=== PATIENT | female | born 1950 | race Caucasian/White ===

== ENCOUNTER 2017-02-20 07:52 | Day surgery (SDC) | payer OTHER ==
[~2017-02-20] VITALS: Ht 154.9 cm; Wt 76.7 kg
[2017-02-20] MEDS ORDERED: POVIDONE IODINE 5% (ANTISEPSIS KIT) 4 APPLICATIONS EACH NARE PRN (08:30)
[2017-02-20] MEDS ORDERED: LACTATED RINGER'S 1000 ML IV PRN (08:30)
[2017-02-20] MEDS ORDERED: INSULIN HUMAN REGULAR 1,000 UNITS/10 ML VIAL SQ PRN (08:30)
[2017-02-20] MEDS ORDERED: SODIUM CHLORID 0.9% 500 ML IV PRN (08:30)
[2017-02-20] MEDS ORDERED: LORazepam 1 MG TAB SL SCH (08:30)
[2017-02-20] MEDS ORDERED: LEVOFLOXACIN 500 MG PREMIX INJ 100 ML IV ONE (08:30)
[2017-02-20] MEDS ORDERED: SODIUM CHLORID 0.9% 500 ML INJ 500 ML IV SCH (08:30)
[2017-02-20] MEDS ORDERED: METOPROLOL TARTRATE 25 MG TAB PO PRN (08:30)
[2017-02-20] MEDS ORDERED: CHLORHEXIDINE GLUCONATE 2 % 1 PACK (2 CLOTHS) TOPICAL PRN (08:30)
[2017-02-20 08:44] VITALS: BP 184/96; PULSE 50; RESP 18; TEMP 99.6; O2SAT 97
[2017-02-20] MEDS ORDERED: CITA20TA4 PO (08:50)
[2017-02-20] MEDS ORDERED: XARE20TA PO (08:50)
[2017-02-20] MEDS ORDERED: RANI150C PO (08:50)
[2017-02-20] MEDS ORDERED: CETI10 PO (08:50)
[2017-02-20] MEDS ORDERED: OMEG100010 PO (08:50)
[2017-02-20] MEDS ORDERED: ACET1CAP18 PO (08:50)
[2017-02-20] MEDS ORDERED: ATEN25TA PO (08:50)
[2017-02-20] MEDS ORDERED: BIOTCAP PO (08:50)
[2017-02-20] MEDS ORDERED: VITA10006 PO (08:50)
[2017-02-20] MEDS ORDERED: METF500T4 PO (08:50)
[2017-02-20] MEDS ORDERED: VITA100018 PO (08:50)
[2017-02-20] MEDS ORDERED: RAMI10CA PO (08:50)
[2017-02-20 08:59] LABS: AUTOMATED NEUTROPHIL # 7.5 TH/MM3 (1.8-7.7); BASOPHIL # 0.2 TH/MM3 (0-0.2); BASOPHIL % 1.7 % (0.0-2.0); EOSINOPHIL # 0.5 TH/MM3 (0-0.4); EOSINOPHIL % 3.8 % (0.0-4.0); HEMATOCRIT 40.5 % (35.0-46.0); HEMO FLAGS DIFF FINAL; LYMPH % 32.9 % (9.0-44.0); LYMPHOCYTE # 4.4 TH/MM3 (1.0-4.8); MEAN CELL VOLUME 91.7 FL (80.0-100.0); MEAN CORPUSCULAR HGB CONC 32.7 % (32.0-36.0); MONO % 5.8 % (0.0-8.0); NEUT % 55.8 % (16.0-70.0); PLATELET COUNT 255 TH/MM3 (150-450); RED BLOOD COUNT 4.42 MIL/MM3 (4.00-5.30); RED CELL DISTRIBUTION WIDTH 15.4 % (11.6-17.2); WHITE BLOOD COUNT 13.5 TH/MM3 (4.0-11.0)
[2017-02-20 09:09] LABS: APTT (PATIENT) 27.1 SEC (24.3-30.1); INTERNATIONAL NORMALIZED RATIO 0.9 RATIO; PROTHROMBIN TIME - PATIENT 10.2 SEC (9.8-11.6)
[2017-02-20 09:33] LABS: BICARBONATE 23.7 MEQ/L (21.0-32.0); POTASSIUM 3.8 MEQ/L (3.5-5.1)
[2017-02-20] MEDS ORDERED: HEPARIN-D5W INJ 250 ML ONE (10:05)
[2017-02-20] MEDS ORDERED: fentaNYL CITRATE 250 MCG/5 ML AMP ONE (10:06)
[2017-02-20] MEDS ORDERED: PROTAMINE SULFATE 50 MG/5 ML VIAL ONE (10:06)
[2017-02-20] MEDS ORDERED: HEPARIN SODIUM - IV 10,000 UNITS/10 ML VIAL ONE (10:06)
[2017-02-20] MEDS ORDERED: ISOPROTERENOL HCL 1 MG/5 ML AMP ONE (10:06)
[2017-02-20] MEDS ORDERED: HEPARIN-NS/PF INJ 500 ML ONE (10:17)
[2017-02-20] MEDS ORDERED: SODIUM CHLORID 0.9% 500 ML INJ 500 ML IV ONE (12:30)
[2017-02-20] MEDS ORDERED: ePHEDrine/NS 50 MG/5 ML SYR IV ONE (12:30)
[2017-02-20] MEDS ORDERED: ONDANSETRON HCL 4 MG/2 ML VIAL IV PUSH ONE (12:30)
[2017-02-20] MEDS ORDERED: METOCLOPRAMIDE HCL 10 MG/2 ML VIAL IV PRN (12:30)
[2017-02-20] MEDS ORDERED: LIDOCAINE HCL 1% 50 ML VIAL INFIL PRN (12:30)
[2017-02-20] MEDS ORDERED: PROPOFOL 200 MG/20 ML AMP IV PUSH ONE (12:30)
[2017-02-20] MEDS ORDERED: oxyCODONE/ACETAMINOPHEN 5 MG/325 MG TAB PO PRN ×2 (12:30)
[2017-02-20] MEDS ORDERED: BACITRACIN OINT 0.9 GM PKT TOP ONE (12:30)
[2017-02-20] MEDS ORDERED: ATROPINE SULFATE 1 MG/ML VIAL IV PRN (12:30)
[2017-02-20] MEDS ORDERED: ONDANSETRON HCL 4 MG/2 ML VIAL IV PRN (12:30)
[2017-02-20] MEDS ORDERED: LORazepam 2 MG/ML VIAL IV PRN (12:30)
[2017-02-20] MEDS ORDERED: SODIUM CHLOR 0.9% 250 ML INJ 250 ML IV PRN (12:30)
[2017-02-20] MEDS ORDERED: PHENYLEPH/NS 1000 MCG/10 ML SYR IV PUSH ONE (12:30)
[2017-02-20] MEDS ORDERED: IOHEXOL 350 MG/ML 100 ML BTL (for EPS) OTHER ONE (12:30)
--- NOTE | 2017-02-20 12:57 | CATHPROC ---
[facility] Report Study Information Study Number Scheduled Start Study Start [id number] 02/20/2017 Feb 20 2017 9:53AM Referring Institution Admit Source Facility Department 1 Other [facility] [facility] [employer] Physician and Clinical Staff Initial Jai Beauchamp Lan Manager Kemal Kerns,RT(R) Other Anesthesia, CURATOR OF PHOTOGRAPHY AND PRINTS Recorder Jackie Carmona,RN Recorder Kerry Preciado,HEIDI Scrub Capri Lopes,JEWISH THOUGHT PROFESSOR TECH2 Procedures Performed Procedure Location (Site) Vessel Name Ablation Procedure CRYO Ablation LIPV LIPV CRYO Ablation LSPV LSPV CRYO Ablation RIPV RIPV CRYO Ablation RSPV RSPV ICE CATHETER INSERT RA Atruim Equipment Time Cotton Broker Description Size Mfg Part Number Used/Scraped COPILOT VALVE, BLEEDBACK [id number] 10:22 [employer] Used CONTROL *[id number] TRANSDUCER, TRUWAVE 10:22 Room n House * [id number] Used W/BookingNestCOCK NEEDLE, TRANSSEPTAL NRG 98 10:22 [facility] [id number] Used C1 COVER, TRANSDUCER CABLE 10:22 [employer] 612-113 Used ACUNAV 10:22 CONMED LEADWIRE, DEFIBRILLATION PAD 2001M-[id number] Used SHEATH SET, FR12 CHECK-LULU RCF-[id number]-J 10:22 COOK/PACER FR12 Used 13CM *[id number] 10:22 CORDIS/PACER SHEATH, FR10 MAICOL 11CM FR 10 [id number] Used [id number] 10:22 [employer] INDUSTRIES PACK, CCL CUSTOM * Used *[id number] 10:22 [employer] PACER PITTMAN, LIMB * 2530 Used [id number]-[id number]- 10:22 [employer]ified MEDICAL SHEATH, FR4.5 PRELUDE 11CM FR 4.5 Used [id number] 10:22 [employer] MEDICAL WIRE, 3MMJ .035 180CM 180CM Used *[id number] 10:22 NAMIC MANIFOLD, 4 PORT * Used *[id number] 10:22 NAMIC TUBING, HIGH PRESSURE 20" 20" Used *[id number] 10:22 NAMIC TUBING, HIGH PRESSURE 48" 48" Used *[id number] 10:22 NAMIC TUBING, HIGH PRESSURE 48" 48" Used *[id number] TUBING, PRESSURE MONITORING [id number] 10:22 NAMIC PACER 72" Used 72" *[id number] 10:48 NYCOMED OMNIPAQUE, 350 MG, 150ML 150ML [id number] Used [id number] 10:22 MARSH MEDICAL BLANKET,WARM AIR CCL * Used *[id number] 771379 10:22 [facility] MEDICAL CATHETER, JSN, QUAD FR 5 Used *[id number] 036215 10:22 [facility] MEDICAL CATHETER, JSN, QUAD FR 5 Used *[id number] 10:22 [facility] MEDICAL ELECTRODE KIT, RAHEEM X SURFACE * [id number] Used 10:22 [facility] MEDICAL SHEATH, EPS, FR6 FAST CATH FR 6 [id number] Used 10:22 [facility] MEDICAL SHEATH, EPS, FR7 FAST CATH FR 7 [id number] Used 10:22 [facility] MEDICAL SHEATH, EPS, FR8 FAST CATH FR 8 [id number] Used CATHETER, ACUNAV FR10 ICE [id number] 11:03 RONA FR 10 Used (RONA) *[id number] [facility] PAD, ELECTROSURGICAL 10:22 * [id number] Used SURGICAL GROUNDING (BLUE) BALLOON, ARCTIC FRONT [id number] 11:16 VITATRON MEDTRONIC Used ADVANCE 28MM *[id number] CATHETER, ACHEIVE MAPPING 11:18 VITATRON MEDTRONIC * [id number] Used 20MM SHEATH, FR12 FLEXCATH 11:16 VITATRON MEDTRONIC FR 12 [id number] Used STEERABLE History: Allergies Allergy Reaction Demerol Lotensin History: Risk Factors Hypertension Dyslipidemia Yes Yes Diabetes Diabetes Therapy Labs Hgb (g/dl) Hct (%) RBC (MIL/MM3) WBC (l/cumm) Platelets (thousands) 12.00-18.00 37.00-55.00 4.80-6.20 4.80-10.80 140.00-450.00 13.0 40 4.4 13.5 255 Glucose (mg/dl) BUN (mg/dl) Creatinine (mg/dl) BUN:Creatinine (1:x) 60.00-110.00 8.00-20.00 0.10-9.00 10.00-20.00 108 17 1.0 17 Na (meq/l) K (meq/l) 138.00-146.00 3.80-5.10 142 3.8 INR (PTT:PT) 0.50-2.00 0.9 CPK-MB (ng/ML) 0.00-7.00 Not Drawn Medication Medication Total Dose (Bolus/Oral) Medication Total Dosage/Unit 1% XYLOCAINE 40 mL HEPARIN 93328 units PROTAMINE 40 mg Medications (Bolus/Oral) Medication Time Given Dosage/Unit Administered By Reason 1% XYLOCAINE 02/20/2017 10:55:30 AM 20 mL Jai Bethea 20 mL 1% XYLOCAINE given in lab by Jai Bethea in Left Groin via Subcutaneous. Ordered by Vlad Bethea 1% XYLOCAINE 02/20/2017 10:58:40 AM 20 mL Jai Bethea 20 mL 1% XYLOCAINE given in lab by Jai Bethea in Right Groin via Subcutaneous. Ordered by Niki Bethea. HEPARIN 02/20/2017 11:06:38 AM 8000 units Anesthesia, CURATOR OF PHOTOGRAPHY AND PRINTS 8000 units HEPARIN given in lab by Anesthesia, CURATOR OF PHOTOGRAPHY AND PRINTS via Peripheral IV. Ordered by Jai Bethea. HEPARIN 02/20/2017 11:19:33 AM 3000 units Anesthesia, CURATOR OF PHOTOGRAPHY AND PRINTS 3000 units HEPARIN given in lab by Anesthesia, CURATOR OF PHOTOGRAPHY AND PRINTS via Peripheral IV. Ordered by Jai Bethea. HEPARIN 02/20/2017 11:33:15 AM 3000 units Anesthesia, CURATOR OF PHOTOGRAPHY AND PRINTS 3000 units HEPARIN given in lab by Anesthesia, CURATOR OF PHOTOGRAPHY AND PRINTS via Peripheral IV. Ordered by Jai Bethea. PROTAMINE 02/20/2017 12:25:26 PM 40 mg Anesthesia, CURATOR OF PHOTOGRAPHY AND PRINTS As per physicians ramiro bal order 40 mg PROTAMINE given in lab by Anesthesia, CURATOR OF PHOTOGRAPHY AND PRINTS via Peripheral IV. Ordered by Jai Bethea. Reason: As per physicians verbal order. Medication (Drip) Medication Time Given Dosage/Unit Concentration/Unit Diluent (ml) Solution HEPARIN DRIP 02/20/2017 11:19:42 AM 1000 units/hr 15026 units 250 D5W 1000 units/hr HEPARIN DRIP given in lab by Anesthesia, CURATOR OF PHOTOGRAPHY AND PRINTS via Peripheral IV. Pump/Drip Flow = 10 ml /hr using D5[place] [address] units in 250 ml. Ordered by Jai Bethea. ISUPREL 02/20/2017 12:15:54 PM 20 mcg/min 1 mg 250 NaCl .9 20 mcg/min ISUPREL given in lab by Anesthesia, CURATOR OF PHOTOGRAPHY AND PRINTS via Peripheral IV. Pump/Drip Flow = 300 ml/hr usi ng NaCl .9 with a concentration of 1 mg in 250 ml. Ordered by Jai Bethea. Reason: As per physicians verbal order. Initial Case Assessment Cardiovascular HR Rhythm NIBP Chest Pain 55 regular 189/80 0 Edema Present Skin color Skin None Normal Warm Dry Neurological State Oriented to time-place- Alert Moves all extremities person Respiration - General Respiration Rate SpO2 (%) (B/min) 15 100 Final Case Assessment Cardiovascular HR Rhythm NIBP Chest Pain 69 sr 135/65 0 Edema Present Skin color Skin None Normal Warm Dry Circulatory - Right Pulses Dorsalis Pedis 2 Scale (0,1,2,3,4,d) Circulatory - Left Pulses Dorsalis Pedis 2 Scale (0,1,2,3,4,d) Circulatory - Lower Extremities Color Lower Right Color Lower Left Normal Normal Neurological State Lethargic Moves all extremities Respiration - General Respiration Rate SpO2 (%) O2 (lpm) (B/min) 16 95 4 Chronological Log Time Study Chronological Log IV Antibiotic Given in the Antecubital (left). 500mg Levaquin given IVx1 in DOCU holding for fo nidia catheter insertion 9:10:00 per MD 10:20:15 Patient arrived via Bed. 10:20:19 Patient Name, D.O.B, / Armband Verified By R.N. 10:20:23 Consent signed by the physician and the patient and verified by the [employer] staff. 10:20:41 Anesthesia at bedside. Assumes care of patient. Oskar Whipple CRNA 10:21:26 Pre-op and post- op instructions given; patient acknowledges understanding of instructions. 10:22:32 Verbal Stimulation=2 Physical Stimulation=2 Airway=2 Respiration=2 TOTAL=8. (0=absent, 1=li mited, 2=present) 10:22:49 Patient has been NPO for More than 6Hrs. 10:22:51 Skin Breakdown-None per pt 10:22:58 Patient Warmer Placed on the Table. 10:22:59 Disposable Defibrillator Pads Placed On Patient. 10:23:00 Margo Prominences Protected 10:23:17 A # 20 IV was noted in the Forearm (right). Grade = 0 0.9 NS infusing at KVO per CURATOR OF PHOTOGRAPHY AND PRINTS in la b 10:23:42 A # 20 IV was noted in the Antecubital (left). Grade = 0 0.9 NS infusing at KVO per CURATOR OF PHOTOGRAPHY AND PRINTS in lab 10:24:17 History and physical on the chart or being dictated. 10:24:20 Table restraints applied according to hospital policy 10:25:27 Lopez Catheter inserted in DOCU to dependent drainage. Clear, yellow urine noted. Assessment: Initial Case, HR=55 BPM, Rhythm=regular, OKYT=571/80 mmhg, Chest Pain=0, Edema=None , Color=Normal, Skin = Warm, Dry 10:34:36 Neurological: State=Alert, Ox3, MASTERS Respiration: Resp=15 B/min, UdN1=860 % 10:40:40 Bilateral groins prepped with 2% chlorhexidine, and with a 3 min. waiting time. 10:44:00 MD arrived. 10:44:33 Reference ECG taken Time Out. Correct patient, correct procedure,correct physician, ,power injector loaded or not l oaded with contrast with 10:51:26 surgical team present. Time Out Concurred by MD, individual staff and CURATOR OF PHOTOGRAPHY AND PRINTS in procedure Time Out #2 - Consents verified, patient in correct position, all results are labled and displa yed, safety precautions 10:51:49 taken, antibiotics administered. Time out concurred by MD, individual staff and CURATOR OF PHOTOGRAPHY AND PRINTS in procedu re 10:51:59 Case Start 10:52:56 CHRIS in progress 10:54:30 CHRIS complete 10:55:30 20 mL 1% XYLOCAINE given in lab by Jai Bethea in Left Groin via Subcutaneous. Ordered by Jai Bethea. 10:56:09 Vascular access was obtained in the Fem Vein (left). 10:56:24 Vascular access was obtained in the Fem Vein (left). 10:56:25 Vascular access was obtained in the Fem Vein (left). 10:56:26 Vascular access was obtained in the Fem Art (left). 10:56:52 A SHEATH, EPS, FR6 FAST CATH FR 6 was advanced into the Fem Vein (left) using the Modified Seldinger technique. 10:57:14 A SHEATH, EPS, FR7 FAST CATH FR 7 was advanced into the Fem Vein (left) using the Modified Seldinger technique. 10:57:18 A SHEATH, FR10 MAICOL 11CM FR 10 was advanced into the Fem Vein (left) using the Modified S eldinger technique. 10:57:24 A SHEATH, FR4.5 PRELUDE 11CM FR 4.5 was advanced into the Fem Art (left) using the Modified Seldinger technique. 10:58:40 20 mL 1% XYLOCAINE given in lab by Jai Bethea in Right Groin via Subcutaneous. Ordered b y Jai Bethea. 10:59:07 Vascular access was obtained in the Fem Vein (right). 10:59:10 Vascular access was obtained in the Fem Vein (right). 10:59:20 A SHEATH, EPS, FR8 FAST CATH FR 8 was advanced into the Fem Vein (right) using the Modified Seldinger technique. A CATHETER, JSN, QUAD FR 5 was advanced vis Fem Vein (left) and placed in the HIS. Placement wa s visually 11:00:43 confirmed under fluoroscopy. A CATHETER, JSN, QUAD FR 5 was advanced vis Fem Vein (left) and placed in the CS. Placement was visually 11:00:58 confirmed under fluoroscopy. 11:02:11 CATHETER, ACUNAV FR10 ICE ([place]) FR 10 Was Postioned. A SHEATH, FR12 FLEXCATH STEERABLE FR 12 was exchanged in the Fem Art (right). This was necessar y in order for 11:03:32 catheter support. 11:04:35 Torrie needle inserted 11:06:38 8000 units HEPARIN given in lab by Anesthesia, CURATOR OF PHOTOGRAPHY AND PRINTS via Peripheral IV. Ordered by Vlad Bethea. 11:07:16 A eps was advanced to the right atrium and passed through the septal wall to the left atriu m. 11:07:46 Torrie needle removed 11:11:20 Activated Clotting Time Drawn A CATHETER, ACHEIVE MAPPING 20MM * was advanced vis Fem Vein (left) and placed in the LA. Place ment was 11:17:29 visually confirmed under fluoroscopy. 11:18:05 Heparin Flush started at 2ml/hr through flex sheath 11:18:59 ACT (Normal Range 90-180) = 286 11:19:33 3000 units HEPARIN given in lab by Anesthesia, CURATOR OF PHOTOGRAPHY AND PRINTS via Peripheral IV. Ordered by Vlad Bethea. 1000 units/hr HEPARIN DRIP given in lab by Anesthesia, CURATOR OF PHOTOGRAPHY AND PRINTS via Peripheral IV. Pump/Drip Flow = 10 ml/hr using 11:19:42 [place] [address] units in 250 ml. Ordered by Jai Bethea. 11:23:38 Cryo Ablation of the LSPV with a BALLOON, ARCTIC FRONT ADVANCE 28MM. First Freeze 11:24:21 Activated Clotting Time Drawn 11:33:02 ACT (Normal Range 90-180) = 294 11:33:15 3000 units HEPARIN given in lab by Anesthesia, CURATOR OF PHOTOGRAPHY AND PRINTS via Peripheral IV. Ordered by Vlad Bethea. 11:33:37 Cryo Ablation of the LSPV with a BALLOON, ARCTIC FRONT ADVANCE 28MM. Second Freeze 11:38:39 Cryo Ablation of the LIPV with a BALLOON, ARCTIC FRONT ADVANCE 28MM. First Freeze 11:41:52 Activated Clotting Time Drawn 11:41:58 Cryo Ablation of the LIPV with a BALLOON, ARCTIC FRONT ADVANCE 28MM. Second Freeze 11:45:38 MM in. JA out. 11:49:08 ACT (Normal Range 90-180) = 351 11:52:55 Cryo Ablation of the RIPV with a BALLOON, ARCTIC FRONT ADVANCE 28MM. 1st freeze. 11:57:20 Cryo Ablation of the RIPV with a BALLOON, ARCTIC FRONT ADVANCE 28MM. 2nd freeze. 12:01:51 Cryo Ablation of the RSPV with a BALLOON, ARCTIC FRONT ADVANCE 28MM. 1st freeze. 12:06:18 Cryo Ablation of the RSPV with a BALLOON, ARCTIC FRONT ADVANCE 28MM. 2nd freeze. 20 mcg/min ISUPREL given in lab by Anesthesia, CURATOR OF PHOTOGRAPHY AND PRINTS via Peripheral IV. Pump/Drip Flow = 300 ml/ hr using NaCl .9 12:15:54 with a concentration of 1 mg in 250 ml. Ordered by Jai Bethea. Reason: As per physicians ramiro bal order. 12:17:00 Isuprel off 12:20:01 MM out. JA in. 12:21:08 Catheters removed without difficulty. A SHEATH SET, FR12 CHECK-LULU 13CM FR12 was exchanged in the Fem Vein (right). This was necessar y in order to ::26 achieve vascular hemostasis. 12:23:39 Ablation procedure performed: AFIB. 12::43 EP Procedure was performed. 12:24:03 PACU called. Spoke to [place]. 12:24:44 Bedside Report will be given. 12:25:00 Heparin off. 40 mg PROTAMINE given in lab by Anesthesia, CURATOR OF PHOTOGRAPHY AND PRINTS via Peripheral IV. Ordered by Jai Bethea. Reason: As per ::26 physicians verbal order. 12:25:53 Cine recording checked. 12:28:59 Activated Clotting Time Drawn 12:31:57 ACT (Normal Range 90-180) = 122 12:35:10 Sheath removed; pressure applied to access site. JA left arterial sheath. DB right venous sheath. 12:35:53 Case End Assessment: Final Case, HR=69 BPM, Rhythm=sr, WDAW=353/65 mmhg, Chest Pain=0, Edema=None, [place] r=Normal, Skin = Warm, Dry Right Pulses: Skyler Ped=2 Left Pulses: Skyler Ped=2 12:37:53 Lower Right Extremities: Color=Normal Lower Left Extremities: Color=Normal Neurological: State=Lethargic, MASTERS Respiration: Resp=16 B/min, SpO2=95 %, O2=4 lpm 12:40:22 JA pulled left fem venous sheaths. 12:54:51 Both femoral sites wnl. No ooz, no hematomas. 12:55:18 Sterile dressing applied to site 12:55:51 No case complications noted. 12:56:50 Defibrillator and ground pads removed. Skin intact. 12:59:34 Patient moved to [facility] End Study - Contrast Media Used In Study Contrast Total Opened (mL) Total Used (mL) Total Wasted (mL) Omnipaque 150 75 75 End Study - Maximum Contrast Load Max Contrast Load (mL) 368.4 End Study - Radiation Exposure Fluoro Time (minutes) 10.6 End Study - Sheaths Sheaths Pulled By Sheath Hold Time (min) Kemal Kerns 20 End Study - Patient Disposition Complications Transferred To Interventional Outcome No Telemetry Bed successful
[2017-02-20] MEDS: RAMIPRIL 5 MG CAP PO SCH (13:00)
[2017-02-20] MEDS ORDERED: *ONDANSETRON 4 MG VIAL PERIprocedural Use ONLY ONE (13:09)
[2017-02-20] MEDS ORDERED: *PROMETHAZINE 25 MG/ML VIAL PERIprocedural use ONLY ONE (13:23)
[2017-02-20] MEDS ORDERED: DO NOT ADM ANY ANTICOAGULANT DRUGS PRN (13:45)
[2017-02-20] MEDS ORDERED: ACETAMINOPHEN 1000 MG/100 ML VIAL IV ONE ×2 (14:38→14:45)
[2017-02-20] MEDS: RIVAROXABAN 20 MG TAB PO SCH (18:00)
[2017-02-20 20:00] VITALS: BP 130/70; PULSE 76; RESP 18; TEMP 98; O2SAT 97
[2017-02-20] MEDS: FAMOTIDINE 20 MG TAB PO SCH (20:23)
[2017-02-20] MEDS: metFORMIN HCL 500 MG TAB PO SCH (20:23)
[2017-02-21] VITALS (12 sets, daily range): BP systolic 112–155; BP diastolic 54–80; PULSE 59–79; RESP 17–20; TEMP 97.9–98.4; O2SAT 94–98
[2017-02-21 06:35] LABS: APTT (PATIENT) 34.9 SEC (24.3-30.1); INTERNATIONAL NORMALIZED RATIO 1.3 RATIO; PROTHROMBIN TIME - PATIENT 14.7 SEC (9.8-11.6)
[2017-02-21] MEDS: metFORMIN HCL 500 MG TAB PO SCH (08:27)
[2017-02-21] MEDS: FAMOTIDINE 20 MG TAB PO SCH (08:27)
[2017-02-21] MEDS: RIVAROXABAN 20 MG TAB PO SCH (08:28)
[2017-02-21] MEDS: RAMIPRIL 5 MG CAP PO SCH (08:29)
[2017-02-21] MEDS ORDERED: CETIRIZINE HCL 10 MG TAB PO SCH (09:00)
[2017-02-21] MEDS ORDERED: ATENOLOL 25 MG TAB PO SCH (09:00)
[2017-02-21] MEDS ORDERED: VITAMIN E 400 UNIT CAP PO SCH (09:00)
[2017-02-21] MEDS ORDERED: NON-FORMULARY DRUG (Omega-3 Fatty Acids (Omega 3 1000 mg) 1,000 MG) PO SCH (09:00)
[2017-02-21] MEDS ORDERED: CHOLECALCIFEROL (VIT D3) 1000 UNIT TAB PO SCH (09:00)
[2017-02-21] MEDS ORDERED: NON-FORMULARY DRUG (Biotin 5 MG) PO SCH (09:00)
[2017-02-21] MEDS ORDERED: CITALOPRAM HYDROBROMIDE 20 MG TAB PO SCH (09:00)
--- NOTE | 2017-02-21 14:24 | HHI.PR ---
Subjective Remarks Feeling better Objective Vital Signs Date Time Temp Pulse Resp B/P Pulse Ox O2 Delivery O2 Flow Rate FiO2 02/21/17 11:03 97.9 59 17 112/54 95 02/21/17 10:23 61 02/21/17 09:24 64 02/21/17 08:00 72 02/21/17 07:45 98.0 78 19 155/80 94 02/21/17 07:00 72 02/21/17 04:00 98.4 73 20 130/79 98 02/21/17 00:00 98.2 79 20 136/78 98 02/20/17 20:00 98.0 76 18 130/70 97 02/20/17 18:45 98.4 79 15 109/55 96 Room Air 02/20/17 18:15 83 15 122/56 96 Room Air 02/20/17 17:45 80 15 118/60 96 Room Air 02/20/17 17:15 98.9 68 15 110/58 96 Room Air 02/20/17 16:45 67 15 105/60 96 Room Air 02/20/17 16:15 66 17 97/52 96 Room Air 02/20/17 15:45 66 17 99/56 96 Room Air 02/20/17 15:15 67 17 97/52 96 Room Air 02/20/17 15:00 67 17 100/55 99 Room Air 02/20/17 14:45 67 17 107/56 99 Room Air 02/20/17 14:30 67 16 103/58 98 Room Air I/O 02/20/17 02/20/17 02/20/17 02/21/17 02/21/17 02/21/17 06:59 14:59 22:59 06:59 14:59 22:59 Intake Total 1200 ml 720 ml 420 ml Output Total 560 ml 250 ml 550 ml Balance 640 ml 470 ml -130 ml Intake Oral 420 ml 420 ml IV Total 300 ml Other 1200 ml Output Urine Total 550 ml 250 ml 550 ml Estimated Blood Loss 10 ml Result Diagram: 02/20/1761902/20/17619 Imaging Alert, fully oriented Lungs:Ventilated Heart: S1, S2 regular Abdomen: soft, no mass Ext: no edema Current Medications Medications (Trade) Dose Ordered Sig/Dinora Route Start Time Stop Time Status Last Admin Lactated Ringer's 1,000 ml @ 30 mls/hr Q24H PRN IV 02/20/17 08:30 02/23/17 08:29 Sodium Chloride 500 ml @ 30 mls/hr [id number] PRN IV 02/20/17 08:30 02/23/17 08:29 (NS 500 ml Inj) 500 ml @ 30 mls/hr [id number] IV 02/20/17 08:30 (Percocet 5-325 Mg) 1 tab Q4H PRN PO 02/20/17 12:30 (Percocet 5-325 Mg) 2 tab Q4H PRN PO 02/20/17 12:30 02/21/17 01:45 (Atropine Inj) 0.5 mg UNSCH PRN IV 02/20/17 12:30 (Reglan Inj) 10 mg Q4H PRN IV 02/20/17 12:30 (Zofran Inj) 4 mg Q4H PRN IV 02/20/17 12:30 (Tenormin) 25 mg DAILY PO 02/21/17 09:00 02/21/17 08:28 (ZyrTEC) 10 mg DAILY PO 02/21/17 09:00 02/21/17 08:28 (Vitamin D3) 1,000 units DAILY PO 02/21/17 09:00 02/21/17 08:27 (CeleXA) 20 mg DAILY PO 02/21/17 09:00 02/21/17 08:26 (Xarelto) 20 mg DAILY PO 02/20/17 18:00 02/21/17 08:28 (Glucophage) 250 mg BID PO 02/20/17 21:00 02/21/17 08:27 (Altace) 10 mg DAILY PO 02/20/17 13:00 02/21/17 08:29 (Pepcid) 20 mg BID PO 02/20/17 21:00 02/21/17 08:27 (Vitamin E) 400 units DAILY PO 02/21/17 09:00 02/21/17 08:27 Assessment and Plan Problem List: (1) Atrial fibrillation Status: Acute Plan: SP ablation . Doing well No tachy. No afib Will be DH Follow up as previously scheduled (2) Palpitations Status: Acute Plan: No new episode since ablation Jai Bethea MD February 21, 2017 14:24
--- NOTE | 2017-02-21 14:31 | PD.CARD ---
Atrial Fibrillation Cryo Study PROCEDURE DATE: February 20, 2017 PROCEDURE PERFORMED Electrophysiology study, CS cannulation, 3-D mapping, transeptal approach, right and left heart catheterization, cryoablation, pulmonary vein isolation, posterior ablation, anterior ablation, repeat electrophysiology study on Isuprel infusion, intracardiac echo. Very complex case. INDICATIONS FOR PROCEDURE Ms. Rousseau is a 66-year-old female with atrial fibrillation, on multiple medications, on anticoagulation, symptomatic, referred for electrophysiology study and ablation. The risks, the nature and the benefit of the procedure are clearly stated to her. The risks include pneumothorax, cardiac perforation, stroke, need for open heart surgery and even . The patient understood and agreed to proceed. PROCEDURE As written informed consent was obtained prior to esophageal echo, the patient was kept on the table where she was prepped and draped in the usual sterile fashion. Conscious sedation was initiated and throughout the procedure by the anesthesiologist. Once sedation was verified, the right and left inguinal area was anesthetized with 2% Xylocaine. Using modified Seldinger technique, the left femoral vein was cannulated on three occasions and three guidewires were advanced over the wire, one 6, one 7, and one 10-[place] Hemaquet were advanced. Then the left femoral artery was done on one occasion, one guidewire was advanced over the wire. A 4-[place] Hemaquet was advanced. Then the right femoral vein was cannulated on one occasion and one guidewire was advanced over the wire. An 8-[place] Hemaquet was advanced. Then under fluoroscopic guidance through the 6 and 7-[place] Hemaquet, two 5- [place] Raymond curved quadripolar electrophysiology catheters were advanced and positioned on the His as well as coronary sinus. The patient was in sinus rhythm. Basic interval was measured. They were all within normal limits. Then through the 10-[place] Hemaquet, a Scyron-Pan AcuNav intracardiac echo catheter was advanced and placed at the right atrium. Multiple views were obtained. There was no pericardial effusion. Pulmonary vein was seen. The atrial septum was visualized. Then the 8-[place] Hemaquet in the right femoral vein was exchanged for an Agilis transseptal sheath that was placed all the way to the superior vena cava. Through this sheath a [place] needle was advanced. Then the sheath, the dilator and the needle were pulled back progressively until foci engaged. Once the needle was advanced, RF was delivered for 2 seconds. I was able to cross into the left atrium. Once the needle was crossed, the dilator was advanced. Once the dilator was crossed, the sheath was advanced. Once the sheath crossed , the dilator and needle were removed. An intracardiac echo showed the sheath in good position. The patient already received 8,000 units of heparin. The goal is to get an ACT around 350 during the ablation. Through the sheath a 0.035 wire was advanced. I did exchange the Agilis sheath for a MyClean flex sheath. Using [employer] endocardial solution mapping system a three-dimensional configuration of the left atrium was obtained. Points were taken at the left superior and inferior vein, right superior and inferior vein, mitral valve, and appendage. I did use the Gal[employer] Ph[employer] catheter for mapping. I decided to use a 28mm balloon. The balloon was advanced over the wire. First I did engage the left superior vein. The balloon was inflated, complete occlusion obtained. CryoEnergy was delivered for 3 and 3 minutes. Temperature reached -52. Then I did engage the left inferior vein, occlusion obtained. Venography showed complete occlusion and CryoEnergy was delivered for 3 and 3 minutes. Temperature was around -48 and - 50. Then the right inferior was engaged, complete occlusion obtained. Temperature reach -48 for 3 and 3 minutes. Then the right superior was engaged. Before CryoEnergy of the right veins, the His catheter was placed at the left and the right subclavian. Phrenic nerve pacing was performed. There was diaphragmatic stimulation. That is going to be used for phrenic nerve monitoring during cryoablation. I did cryoablate the right superior vein. There was no loss of phrenic nerve movement, diaphragmatic movement. Phrenic nerve was intact. The temperature dropped to -54 for 3 and 3 minutes. At that point I removed the balloon. Then the circumferential catheter was advanced into the veins. Pacing from the vein showed no conduction to the atrium. Pacing from the atrium showed no conduction to the veins. The patient at this point received Isuprel infusion for around 15 minutes at 20mcg. No tachyarrhythmia was induced, no conduction resumed. Post-Isuprel no conduction resumed either. At that point the procedure was complete. All catheters were removed, the transeptal sheath was exchanged for a 12-[place] Hemaquet. Intracardiac echo showed pericardial effusion, still good flow in the pulmonary vein. No incident reported. The patient tolerated the procedure. Blood loss minimal. 1. Electrocardiogram: At baseline the patient was in sinus. Postprocedure the patient in sinus. 2. Basic Interval: Base cycle length was around 860 milliseconds. 3. Tachyarrhythmia: Atrial fibrillation was mapped and ablated. Ablation was successful. CONCLUSION Successful electrophysiology study, mapping and cryo ablation of atrial fibrillation, pulmonary vein isolation, posterior and anterior wall ablation, repeat electrophysiology study on Isuprel infusion. COMMENT AND RECOMMENDATIONS The patient is going to be transferred to the telemetry unit, will be observed, and when stable can be discharged home. Jai Bethea MD February 21, 2017 14:31
--- NOTE | 2017-02-21 16:03 | EKG ---
Date Performed: 02/20/2017 Time Performed: 09:12:04 PTAGE: 66 years EKG: Sinus bradycardia with PVC(s). Prolonged QT interval Leftward axis Poor R wave progression - probable normal variant Borderline ECG NO PREVIOUS TRACING DOCTOR: Booker Coleman Interpretating Date/Time 02/21/2017 16:01:33
--- NOTE | 2017-02-21 16:05 | EKG ---
Date Performed: 02/20/2017 Time Performed: 13:34:30 PTAGE: 66 years EKG: Sinus rhythm BORDERLINE LEFT AXIS DEVIATION MINIMAL ST DEPRESSION When compared to previous tracing, previously p resent premature Ventricular contractions are less prominant. BORDERLINE ECG PREVIOUS TRACING : 02/20/2017 09.12 DOCTOR: Booker Coleman Interpretating Date/Time 02/21/2017 16:03:12
--- NOTE | 2017-02-21 16:07 | EKG ---
Date Performed: 02/21/2017 Time Performed: 05:41:48 PTAGE: 66 years EKG: Sinus rhythm Leftward axis Poor R wave progression - probable normal variant Lateral T wave changes are nonspecif ic Since previous tracing, no significant change noted Borderline ECG PREVIOUS TRACING : 02/20/2017 13.34 DOCTOR: Booker Coleman Interpretating Date/Time 02/21/2017 16:05:26
== END 2017-02-21 15:45 | disposition home or self-care (01) ==
LOC: HDOC 07:52 → HDIC 07:53 → HCIN 19:27 → HDOC 02-21 15:45
PROVIDERS: ATTEND Internal Medicine Interventional Cardiology
DX: I48.91 Unspecified atrial fibrillation (principal); R00.2 Palpitations; R06.00 Dyspnea, unspecified; I10 Essential (primary) hypertension; E11.9 Type 2 diabetes mellitus without complications
CPT/HCPCS: 80048; 85002; 85025; 85610; 85730; 86850; 86900; 86901; 93005; 93312; 93320; 93325; 93613; 93623; 93656; 93662; C1730; C1731; C1732; C1733; J1644; J1956; J2370; J2405; J2550; J2720; J3010; J7040; J0131; Q9967